=== PATIENT | male | born 1960 | race Caucasian/White ===

== ENCOUNTER 2019-06-08 08:24 | Outpatient (CLI) | payer OTHER ==
[~2019-06-08 08:24] MED LIST: CIPRO500 MG PO; PROTONIX40 MG; PYRIDIUM200 MG; SURFAK240 M1; TAMS0.4C; ULTRACET; ZOFRAN4 MG
== END 2019-06-08 08:26 | disposition home or self-care (01) ==
LOC: RAD 08:24
DX: I70.0 Atherosclerosis of aorta (principal)